=== PATIENT | female | born 1970 | race Caucasian/White ===

== ENCOUNTER 2018-04-29 14:48 | Emergency (ER) | payer BC, SELFPAY ==
[2018-04-29 15:08] VITALS: BP 116/65; PULSE 80; RESP 18; TEMP 36.8; O2SAT 98
--- NOTE | 2018-04-29 15:19 | DI.RAD_ITS ---
SYMPTOMS/DIAGNOSIS: SKIING INJURY, LT LATERAL KNEE PAIN LEFT KNEE: No fracture is identified. The joint spaces are well maintained. No joint effusion is visible. IMPRESSION: Negative left knee.
--- NOTE | 2018-04-29 16:19 | DI.VRAD_ITS ---
EXAM: XR Left Knee, 3 Views EXAM DATE/TIME: 04/29/2018 4:02 PM CLINICAL HISTORY: 47 years old, female; Pain; Knee; Left; Patient HX: Left lateral knee pain; Per PT: Skiing TECHNIQUE: XR Left knee 3 views. COMPARISON: No relevant prior studies available. FINDINGS: Bones/joints: Normal. Soft tissues: Normal. IMPRESSION: No acute findings. Dictated and Authenticated by: Clinton Sahu MD. Ordering:AUDRA Little MD
--- NOTE | 2018-04-29 16:38 | W.ED.GENAD ---
Discharge Plan Disposition Patient Disposition: HOME Condition: Good Discharge Details Chief Complaint: Orthopedic Clinical Impression: Left knee sprain Reason For Visit: left knee ski injury Primary Care Provider: None,None ED Provider: Sidney Butler Discharge Instructions Instructions: Knee Sprain (ED) Additional Instructions: Please take 800 mg of Motrin and 1000 mg of Tylenol every 6 hours for pain. Please use ice regularly to maintain decreased swelling. Please follow-up with your home orthopedic surgeon as soon as possible for reassessment. For your long drive home, please move your legs regularly and massage her calf regularly to prevent any blood clots. Taking 81 mg of aspirin on the day of your travels is certainly reasonable. If you notice any worsening of your symptoms, or any new symptoms such as vomiting, diarrhea, fever, chills, shortness of breath, chest pain, numbness, weakness, or fainting , please return immediately to the emergency department for reevaluation. Please follow up with your primary care provider as soon as possible for reassessment and reevaluation. As always, it was a pleasure participating in your medical care today. Discharge Data Discharge Date/Time-TO BE ENTERED AT DEPARTURE: 04/29/18 17:02 Medical Decision Making This is a 47-year-old female with no significant past medical history except for MS who presents today for evaluation of pain in her left knee. Patient states that she was skiing earlier today, took a tumble, her ski stayed on and she eventually slid to a halt without hitting anything hard or losing consciousness. She had pain in her left lateral knee after standing. Pain worse with movement. Improved by nothing. Physical exam demonstrates minimal tenderness over the proximal fibular head, no evidence of tenderness on palpation of the tibia, or the tibial plateau. No laxity with varus or valgus stressing, no pain with varus or valgus stressing. No evidence of laxity with anterior posterior drawer testing. Notable mild tenderness with Caroline's test signs and symptoms are concerning for a ligamentous injury or a mild meniscal injury. X-ray was ordered to rule out any acute fracture, and x-ray per virtual radiology is negative for any acute fracture. It is improved with Tylenol and Motrin. Recommend continued NSAID use, we will place the patient in a knee immobilizer with recommendations for close follow-up with orthopedic surgeon at home in [place]. We will provide her with a CD of the images. I have extensively reviewed the treatment plan and discharge instructions with the patient and their family. I have addressed all patient concerns at this time. The patient and family was made aware of what symptoms to monitor for that would warrant a return to the emergency department. Discussed the plan with the patient and family, they demonstrate verbal understanding and agreement with our assessment and plan at this time. COMPARISON: No relevant prior studies available. FINDINGS: Bones/joints: Normal. Soft tissues: Normal. IMPRESSION: No acute findings. Dictated and Authenticated by: Clinton Sahu MD. HPI General Date/Time Provider Initiated Documentation: 04/29/18 15:11. HPI Narrative: This is a 47-year-old female with no significant past medical history except for MS who presents today for evaluation of pain in her left knee. Patient states that she was skiing earlier today, took a tumble, her ski stayed on and she eventually slid to a halt without hitting anything hard or losing consciousness. She had pain in her left lateral knee after standing. Pain worse with movement. Improved by nothing. She has had no Tylenol or Motrin. She denies any radiation down the leg or proximally up the leg. She denies any hip pain. She denies any associated numbness tingling or weakness. She does have a cane that she has been using for the past few hours to ambulate and this has been helping. She denies any other complaints at this time. General Stated Complaint: Orthopedic PRETTY: 3 Review of Systems Review of Systems All systems reviewed & are unremarkable except as noted in HPI and below PFSH Social History Smoking/Tobacco Use Status: Never Exam Narrative Exam Narrative: 1.Const: Well-nourished, Well-developed, appearing stated age 2.Eyes: PERRL, no conjunctival injection, and symmetrical lids. 3.ENT: Atraumatic external nose and ears. Moist MM. Neck: Symmetric, trachea midline, No thyromegaly. 4.CVS: +S1/S2, No murmurs or gallops. Peripheral pulses 2+ and equal in all extremities. Brisk capillary refill in all extremities. 5.RESP: Unlabored respiratory effort. Clear to auscultation bilaterally. No wheezes rales or rhonchi 6.GI: Soft, Nontender/Nondistended, No hepatosplenomegaly. No guarding or rebound. 7.MSK: Normocephalic/Atraumatic, patient has +5 out of 5 strength in the lower extremities in dorsiflexion and plantarflexion, knee flexion and extension, hip flexion and extension. There is +2 over 2 dorsalis pedis pulses bilaterally. There is normal sensation to the skin with light touch at the foot knee and hip. Patient demonstrates mild tenderness on palpation on the lateral aspect of the proximal fibula on her left knee. No evidence of deformity or dislocation. Normal flexion and extension. No laxity with varus or valgus stressing. No laxity with anterior posterior drawer test. Notable worsening of her pain with Caroline's test. No evidence of calf tenderness, rupture of the muscle bellies, or hard or tense compartments. Normal sensation throughout the lower extremity distal to the site of injury on the left lower extremity. 8.Skin: Warm, Dry. No rashes or lesions. 9.Neuro: staff occupational therapist II-XII grossly intact. Sensation grossly intact, no focal neurologic deficits. 10.Psych: (AAO) x3. Appropriate mood and affect Course Vital Signs Temperature 36.8 C 04/29/18 15:08 Pulse 80 04/29/18 15:08 Respiratory Rate 18 04/29/18 15:08 Blood Pressure 116/65 04/29/18 15:08 Pulse Oximetry 98 04/29/18 15:08 Temperature 36.8 C 04/29/18 15:08 Temperature Source Temporal Artery Scan 04/29/18 15:08 Pulse 80 04/29/18 15:08 Respiratory Rate 18 04/29/18 15:08 Blood Pressure 116/65 04/29/18 15:08 Blood Pressure Position Sitting 04/29/18 15:08 Pulse Oximetry 98 04/29/18 15:08 Oxygen Delivery Method Room Air 04/29/18 15:08 Oxygen Flow Rate 0 04/29/18 15:08
== END 2018-04-29 17:02 | disposition home or self-care (01) ==
PROVIDERS: Emergency Provider Student in an Organized Health Care Education/Training Program
DX: S83.92XA Sprain of unspecified site of left knee, initial encounter (principal); V00.321A Fall from snow-skis, initial encounter
CPT/HCPCS: 73562; 99283; 99282